=== PATIENT | male | born 1980 | race Two or more races ===

== ENCOUNTER 2018-04-18 17:00 | Emergency (ER) | payer SELFPAY ==
[~2018-04-18] VITALS: Ht 172.7 cm; Wt 90.7 kg
--- NOTE | 2018-04-18 17:04 | NUR ---
PT BIBRA FROM WORK TO ER BED 12 C/O HEART PALPITATION, BLURRING OF VISION AND GENERALIZED BODY ACHES X "COUPLE OF DAYS" NO NEURO DEFICIT NOTED AT THIS TIME. PT IS AAO, PLACED ON MONITOR. AWAIITING MD CASTRO.
--- NOTE | 2018-04-18 17:16 | NUR ---
NIKOLAY CANTU AT BEDSIDE FOR EVAL.
[2018-04-18] MEDS ORDERED: ASPIRIN 81 MG TAB.CHEW ONE (17:19)
--- NOTE | 2018-04-18 17:25 | NUR ---
IV LINE STARTED BLOOD DRAWN AND SENT TO LAB.
[2018-04-18] MEDS ORDERED: ASPIRIN 325 MG TABLET PO ONE (17:30)
[2018-04-18 17:32] LABS: BASOPHILS # (AUTO) 0.2 /CMM (0.0-0.2); BASOPHILS % (AUTO) 2.8 % (0.0-2.0); EOSINOPHILS % (AUTO) 0.3 % (0.0-6.0); HEMATOCRIT 47 % (39-51); HEMOGLOBIN 15.2 g/dL (13.5-17.5); LYMPHOCYTES # (AUTO) 1.4 /CMM (0.8-4.8); LYMPHOCYTES % (AUTO) 22.8 % (20.0-44.0); MEAN CORPUSCULAR HEMOGLOBIN 26 PG (26.0-33.0); MEAN CORPUSCULAR HGB CONC 32 g/dl (31.0-36.0); MEAN CORPUSCULAR VOLUME 82 fL (80-96); MONOCYTES # (AUTO) 0.4 /CMM (0.1-1.30); MONOCYTES % (AUTO) 6.3 % (2.0-12.0); NEUTROPHILS # (AUTO) 4.1 /CMM (1.8-8.9); NEUTROPHILS % (AUTO) 67.8 % (43.0-81.0); PLATELET COUNT (AUTO) 209 /CMM (150-450); RED BLOOD CELL COUNT(AUTO) 5.77 MIL/uL (4.5-6.0); WHITE BLOOD COUNT (AUTO) 6.1 K/uL (4.3-11.0)
[2018-04-18 17:43] LABS: CALCIUM, SERUM 8.8 mg/dL (8.5-10.1); CARBON DIOXIDE 28 mmol/L (21-32); CHLORIDE 102 mmol/L (98-107); CREATININE 1.2 mg/dL (0.6-1.3); GLUCOSE 101 mg/dL (74-106); POTASSIUM 4.1 mmol/L (3.5-5.1); SODIUM SERUM 138 mmol/L (136-145)
[2018-04-18 17:53] LABS: TROPONIN I < 0.017 ng/mL (0.00-0.056); UREA NITROGEN, BLOOD 13 mg/dL (7-18)
[2018-04-18 17:59] LABS: INR 0.95 (0.85-1.15)
--- NOTE | 2018-04-18 18:41 | NUR ---
Patient discharged to home in stable condition. Written and verbal after care instructions given. Patient verbalizes understanding of instruction.IV removed. Catheter intact and site benign. Pressure and 4x4 applied to site. No bleeding noted.
[2018-04-18 18:42] VITALS: BP 145/96
== END 2018-04-18 18:53 | disposition home or self-care (01) ==
LOC: ER 17:02
DX: R00.2 Palpitations (principal); R07.89 Other chest pain; F41.9 Anxiety disorder, unspecified
CPT/HCPCS: 36415; 71045; 80048; 84484; 85025; 85730; 93005; 99285; A4606; Z7610